=== PATIENT | male | born 1960 | race Hispanic/Latino ===

== ENCOUNTER 2021-04-19 07:56 | Inpatient (IN) | payer SELFPAY ==
[2021-04-19 08:34] LABS: #Lymphocytes 0.5 thou/uL (1.20-3.40); #Monocytes 0.2 thou/uL (0.11-0.59); #Neutrophils 2.3 thou/uL (1.40-6.50); %Basophils 0.8 % (0.0-1.0); %Monocytes 5.2 % (0.0-10.0); Hemoglobin 13.4 g/dL (14.0-18.0); Mean Corpuscular HGB CONC 33.8 g/dL (32.0-36.0); Mean Corpuscular Hemoglobin 30.8 pg (27.0-31.0); Mean Corpuscular Volume 90.9 fL (78.0-98.0); Mean Platelet Volume 9.1 fL (7.4-10.4); Platelet Count 122 thou/uL (130-400); RBC Distribution Width 10.9 % (11.5-14.5); Red Blood Cell (RBC) Count 4.36 mill/uL (4.70-6.10)
[2021-04-19 08:47] LABS: ALT (SGPT) 21 U/L (8-55); AST (SGOT) 33 U/L (5-34); Albumin 3.4 g/dL (3.5-5.0); Alkaline Phosphatase 61 U/L (40-110); Anion Gap 18 mmol/L (10-20); BUN (Urea Nitrogen) 32 mg/dL (8.4-25.7); Bilirubin, Total 0.6 mg/dL (0.2-1.2); Calc. Creatinine Clearance 0 mL/min (70-130); Calcium 8.3 mg/dL (7.8-10.44); Carbon Dioxide 21 mmol/L (22-29); Chloride 94 mmol/L (98-107); Globulin 3.4 g/dL (2.4-3.5); Glucose 173 mg/dL (70-105); Potassium 3.6 mmol/L (3.5-5.1); Protein, Total 6.8 g/dL (6.0-8.3); Sodium 129 mmol/L (136-145)
[2021-04-19] MEDS ORDERED: Sodium Chloride 0.9% 1,000 ML ONE (09:23)
[2021-04-19 09:27] LABS: Base Excess-Venous -3.5 mmol/L (-2.0 to 3.0); Bicarbonate (HCO3v) 21.4 mmol/L (22.0-28.0); CO2 Tension (PvCO2) 37.2 mmHg (42.0-51.0); Calcium, Ionized 1.04 mmol/L (1.15-1.33); Chloride 96 mmol/L (98-107); Hemoglobin - Calc 12.9 g/dL (14.0-18.0); Potassium 3.7 mmol/L (3.5-5.1); Sodium 128 mmol/L (138-145); T. Carbon Dioxide 22.6 mmol/L (22.0-28.0)
[2021-04-19 10:52] LABS: Bilirubin Negative (Negative); Blood, Urine Negative (Negative); Clarity Clear (Clear); Glucose, Urine (Dipstick) Negative (Negative); Ketone, Urine 15 mg/dL (Negative); Leukocyte Negative (Negative); Nitrite Negative (Negative); Protein, Urine (Dipstick) 30 mg/dL (Neg-Trace); Specific Gravity, Urine 1.015 (1.005-1.030); Urobilinogen 0.2 mg/dL (Less than 2); pH, Urine 5.5 (5.0-9.0)
[2021-04-19 10:59] LABS: RBC/HPF None Seen HPF (0-3); Squamous Epithelial None Seen HPF (0-3); WBC/HPF 0-3 HPF (0-3)
[2021-04-19] MEDS ORDERED: Dexamethasone 4 mg/ml Vial ONE (11:09)
[2021-04-19 11:41] LABS: SARS-CoV-2 NAA Rapid Test DETECTED (NotDetected)
[2021-04-19] MEDS ORDERED: HumaLOG 300 UNITS/3 ML VIAL SC PRN ×2 (14:21)
[2021-04-19] MEDS ORDERED: Dextrose 50% Abboject 50 ML SYRINGE SLOW IVP PRN (14:21)
[2021-04-19] MEDS ORDERED: Acetaminophen 325 MG TAB PO PRN (14:22)
[2021-04-19 14:27] VITALS: BMI 28.3
[2021-04-19] MEDS: Sodium Chloride 0.9% 1,000 ML IV SCH (15:45)
[2021-04-19] MEDS: Dexamethasone 4 MG TAB PO SCH (17:26)
[2021-04-19] MEDS ORDERED: Lantus 1000 UNITS/10 ML VIAL SC SCH (21:15)
[2021-04-19] MEDS ORDERED: HumaLOG 300 UNITS/3 ML VIAL SC SCH (21:15)
[2021-04-19] MEDS: Enoxaparin Sodium 40 MG/0.4 ML SYRINGE SC SCH (21:17)
[2021-04-19] MEDS: Famotidine 20 MG TAB PO SCH (21:17)
[2021-04-20] MEDS: Sodium Chloride 0.9% 1,000 ML IV SCH (03:47)
[2021-04-20 05:25] LABS: #Lymphocytes 0.3 thou/uL (1.20-3.40); #Monocytes 0.4 thou/uL (0.11-0.59); #Neutrophils 4.5 thou/uL (1.40-6.50); %Basophils 0.4 % (0.0-1.0); %Lymphocytes 5.9 % (21.0-51.0); %Monocytes 7.1 % (0.0-10.0); %Neutrophils 86.6 % (42.0-75.0); Hemoglobin 12.7 g/dL (14.0-18.0); Mean Corpuscular HGB CONC 33.6 g/dL (32.0-36.0); Mean Corpuscular Hemoglobin 30.8 pg (27.0-31.0); Mean Corpuscular Volume 91.7 fL (78.0-98.0); Platelet Count 142 thou/uL (130-400); RBC Distribution Width 10.9 % (11.5-14.5); Red Blood Cell (RBC) Count 4.14 mill/uL (4.70-6.10); White Blood Cell (WBC) Count 5.2 thou/uL (4.8-10.8)
[2021-04-20 05:41] LABS: ALT (SGPT) 20 U/L (8-55); AST (SGOT) 28 U/L (5-34); Albumin 3.1 g/dL (3.5-5.0); Alkaline Phosphatase 61 U/L (40-110); Anion Gap 14 mmol/L (10-20); BUN (Urea Nitrogen) 26 mg/dL (8.4-25.7); Bilirubin, Total 0.3 mg/dL (0.2-1.2); CK (CPK) 222 U/L (30-200); CRP (Inflammatory) 9.76 mg/dL (= or < 0.5); Calc. Creatinine Clearance 79 mL/min (70-130); Calcium 8.3 mg/dL (7.8-10.44); Carbon Dioxide 18 mmol/L (22-29); Chloride 105 mmol/L (98-107); Globulin 3.1 g/dL (2.4-3.5); Glucose 359 mg/dL (70-105); Potassium 3.9 mmol/L (3.5-5.1); Protein, Total 6.2 g/dL (6.0-8.3); Sodium 133 mmol/L (136-145)
[2021-04-20] MEDS: HumaLOG 300 UNITS/3 ML VIAL SC PRN ×3 (05:47→18:08)
[2021-04-20] MEDS: Famotidine 20 MG TAB PO SCH ×2 (08:23→21:12)
[2021-04-20] MEDS ORDERED: Non-Formulary Item 1 EACH (Remdesivir 200 MG) IV SCH (09:00)
[2021-04-20] MEDS ORDERED: Benzonatate 100 MG CAP PO PRN (12:11)
[2021-04-20] MEDS ORDERED: Albuterol 200 PUFF (6.7GM INHALER) INH PRN (12:12)
[2021-04-20 12:20] LABS: Hemoglobin A1c 9.6 % (4.0-6.0)
[2021-04-20] MEDS ORDERED: Dexamethasone 4 MG TAB ONE ×2 (17:50→18:01)
[2021-04-20] MEDS: Dexamethasone 4 MG TAB PO SCH (17:55)
[2021-04-20 20:48] VITALS: BP 143/71; TEMP 98.2
[2021-04-20] MEDS ORDERED: Famotidine 20 MG TAB ONE (20:58)
[2021-04-20] MEDS ORDERED: Enoxaparin Sodium 60 MG/0.6 ML SYRINGE ONE (20:58)
[2021-04-20] MEDS ORDERED: Lantus 1000 UNITS/10 ML VIAL SC SCH (21:00)
[2021-04-20] MEDS: Enoxaparin Sodium 40 MG/0.4 ML SYRINGE SC SCH (21:12)
[2021-04-21] MEDS ORDERED: Glimepiride 2 MG TAB PO SCH (08:00)
[2021-04-21] MEDS ORDERED: BARICITINIB PO SCH (09:00)
[2021-04-21] MEDS ORDERED: REMDESIVIR 100 MG IV SCH (09:00)
== END 2021-04-20 20:35 | disposition short-term general hospital (02) | DRG 177 ==
LOC: NAV ERS 07:56 → NAV ACUTE 13:16
PROVIDERS: ADMIT Internal Medicine; ATTEND Internal Medicine
PROC: 8E0ZXY6 Isolation (ICD-10-PCS; 2021-04-19)
PROC: XW033E5 Introduction of Remdesivir Anti-infective into Peripheral Vein, Percutaneous Approach, New Technology Group 5 (ICD-10-PCS; principal; 2021-04-20)
DX: U07.1 COVID-19 (principal); J12.82 Pneumonia due to coronavirus disease 2019; J96.01 Acute respiratory failure with hypoxia; E11.9 Type 2 diabetes mellitus without complications; Z98.890 Other specified postprocedural states
CPT/HCPCS: 36415; 36416; 71045; 80053; 81003; 81015; 82330; 82550; 82803; 83036; 83605; 84484; 85025; 85379; 86140; 87040; 87149; 93005; J1100; J1650; J1815; J7050; J8540; U0002